=== PATIENT | female | born 1985 | race Caucasian/White ===

== ENCOUNTER 2020-03-18 21:34 | Inpatient (IN) | payer MEDICAID ==
[~2020-03-18] VITALS: Ht 160 cm; Wt 81.6 kg
[2020-03-18] MEDS ORDERED: CYMBALTA60 MG PO (21:39)
[2020-03-18 22:32] VITALS: BP 123/79
[2020-03-18 22:36] LABS: HCG SERUM NEGATIVE (NEGATIVE)
[2020-03-18 22:38] LABS: CALC OSMOLALITY 265 mosm/kg (275-300); CALCIUM 9.2 mg/dL (8.5-10.1); CARBON DIOXIDE 26.4 mmol/L (21.0-32.0); CHLORIDE - SERUM 101 mmol/L (98-107); CREATININE - SERUM 0.9 mg/dL (0.6-1.3); GLUCOSE 116 mg/dL (74-106); POTASSIUM - SERUM 3.8 mmol/L (3.5-5.1); SODIUM 133 mmol/L (136-145); UREA NITROGEN 10 mg/dL (7-18); eGFR NON AFRICAN AMERICAN 75 mL/min (90-120)
[2020-03-18 22:38] LABS: BILIRUBIN NEGATIVE (NEGATIVE); KETONE NEGATIVE (NEGATIVE); NITRITE NEGATIVE (NEGATIVE); UROBILINOGEN NORMAL mg/dL (< 2)
[2020-03-18 22:39] LABS: BACTERIA FEW HPF (NONE SEEN); EPITHELIAL CELLS OCC /hpf (0-5); WHITE CELLS - URINE 0-5 HPF (0-4)
[2020-03-18 22:41] LABS: ALBUMIN 3.6 g/dL (3.4-5.0); ALKALINE PHOSPHATASE 106 U/L (30-120); ALT (SGPT) 21 U/L (10-68); AMYLASE - SERUM 78 U/L (25-115); BILIRUBIN - TOTAL 0.27 mg/dL (0.2-1.3); LIPASE 184 U/L (73-393); PROTEIN - SERUM 7.8 g/dL (6.4-8.2)
[2020-03-18 22:42] LABS: HEMOGLOBIN 14.2 g/dL (12-16); MCH 30.3 pg (26.0-34.0); MCHC 33.8 g/dL (31.0-37.0); MCV 89.6 fL (80.0-100.0); MEAN PLATELET VOLUME 9.2 fL (7.4-10.4); PLATELET COUNT 433 10x3/uL (130-400); RBC 4.69 10x6/uL (4.00-5.40); RDW 13.7 % (11.5-14.5); TROPONIN-I < 0.017 ng/mL (0.000-0.060); WBC 25.3 10x3/uL (4.8-10.8)
[2020-03-18 22:57] LABS: EOSINOPHILS 2 % (0-7); LYMPHOCYTES 9 % (15-50); MONOCYTES 2 % (2-11); NEUTROPHILS 87 % (40-80); PLATELET ESTIMATE NORMAL
[2020-03-19 01:00] VITALS: BP 113/70
[2020-03-19 01:23] LABS: C-REACTIVE PROTEIN 2.7 mg/dL (0.0-0.9)
[2020-03-19 02:15] VITALS: BP 108/67
[2020-03-19 03:16] VITALS: BP 104/63
[2020-03-19 04:17] LABS: BASOPHILS 0.2 % (0-2); EOSINOPHILS 2.9 % (0-7); HEMATOCRIT 37.8 % (36.0-48.0); HEMOGLOBIN 12.6 g/dL (12-16); IMMATURE GRANULOCYTES 0.9 % (0-5); LYMPHOCYTES 21.9 % (15-50); MCH 29.7 pg (26.0-34.0); MCHC 33.3 g/dL (31.0-37.0); MCV 89.2 fL (80.0-100.0); MEAN PLATELET VOLUME 8.8 fL (7.4-10.4); MONOCYTES 3.1 % (2-11); PLATELET COUNT 384 10x3/uL (130-400); RBC 4.24 10x6/uL (4.00-5.40); RDW 13.6 % (11.5-14.5)
[2020-03-19 04:31] LABS: ALBUMIN 2.8 g/dL (3.4-5.0); ALKALINE PHOSPHATASE 82 U/L (30-120); ALT (SGPT) 18 U/L (10-68); BILIRUBIN - TOTAL 0.32 mg/dL (0.2-1.3); CALCIUM 8.2 mg/dL (8.5-10.1); CARBON DIOXIDE 24.8 mmol/L (21.0-32.0); CHLORIDE - SERUM 105 mmol/L (98-107); CREATININE - SERUM 0.8 mg/dL (0.6-1.3); GLUCOSE 101 mg/dL (74-106); PROTEIN - SERUM 6.4 g/dL (6.4-8.2); SODIUM 138 mmol/L (136-145); eGFR NON AFRICAN AMERICAN 86 mL/min (90-120)
[2020-03-19 04:37] LABS: CALC OSMOLALITY 273 mosm/kg (275-300); UREA NITROGEN 7 mg/dL (7-18)
--- NOTE | 2020-03-19 07:21 | NUR ---
LYING IN BED W/EYES CLOSED, AROUSES EASILY W/VERBAL STIMULI. DENIES ANY NEEDS, NO DISTRESS NOTED.
[2020-03-19 08:38] VITALS: BP 108/66
[2020-03-19 10:53] VITALS: BP 110/62
[2020-03-19 15:02] VITALS: Ht 160 cm; Wt 81.6 kg
[2020-03-19 16:59] VITALS: BP 115/72
--- NOTE | 2020-03-19 23:50 | NUR ---
RECIEVED TO ROOM ALERT AND ORIENTIATED, IV INTACT TO LEFT WRIST, DENIES PAIN OR NEEDS AT THSI TIME, CALL LIGHT IN REACH
--- NOTE | 2020-03-19 23:56 | NUR ---
REPORT CALLED AND PT TRANSFERED TO [id number].
[2020-03-20] VITALS: BP 133/66
[2020-03-20 04:00] VITALS: BP 98/61
--- NOTE | 2020-03-20 05:59 | NUR ---
I have reviewed this patient and I concur with the Shift Assessment completed by the Licensed Practical Nurse today this shift.
[2020-03-20 06:45] LABS: BASOPHILS 0.4 % (0-2); EOSINOPHILS 2.3 % (0-7); HEMATOCRIT 38.6 % (36.0-48.0); HEMOGLOBIN 12.8 g/dL (12-16); IMMATURE GRANULOCYTES 0.4 % (0-5); LYMPHOCYTES 39.5 % (15-50); MCH 29.6 pg (26.0-34.0); MCHC 33.2 g/dL (31.0-37.0); MCV 89.4 fL (80.0-100.0); MEAN PLATELET VOLUME 9.2 fL (7.4-10.4); MONOCYTES 5.5 % (2-11); NEUTROPHILS 51.9 % (40-80); PLATELET COUNT 377 10x3/uL (130-400); RBC 4.32 10x6/uL (4.00-5.40); RDW 13.6 % (11.5-14.5)
[2020-03-20 06:59] LABS: WBC 10.7 10x3/uL (4.8-10.8)
[2020-03-20 07:00] LABS: ALKALINE PHOSPHATASE 74 U/L (30-120); ALT (SGPT) 18 U/L (10-68); BILIRUBIN - TOTAL 0.23 mg/dL (0.2-1.3); C-REACTIVE PROTEIN 4.7 mg/dL (0.0-0.9); CALC OSMOLALITY 273 mosm/kg (275-300); CALCIUM 8.4 mg/dL (8.5-10.1); CHLORIDE - SERUM 105 mmol/L (98-107); CREATININE - SERUM 0.7 mg/dL (0.6-1.3); GLUCOSE 87 mg/dL (74-106); POTASSIUM - SERUM 4.4 mmol/L (3.5-5.1); PROTEIN - SERUM 6.2 g/dL (6.4-8.2); SODIUM 138 mmol/L (136-145); eGFR NON AFRICAN AMERICAN > 90 mL/min (90-120)
[2020-03-20 07:02] LABS: UREA NITROGEN 9 mg/dL (7-18)
[2020-03-20 09:08] VITALS: BP 173/56
--- NOTE | 2020-03-20 11:15 | NUR ---
RESTING IN BED, NO DISTRESS NOTED, DENIES ANY PAIN, SL IN PLACE
[2020-03-20 12:14] VITALS: BP 118/65
[2020-03-20] MEDS ORDERED: AMOXICILLIN500 M1 PO (14:17)
[2020-03-20] MEDS ORDERED: NICODERM CQ1 EAC3 TOPICAL (16:17)
--- NOTE | 2020-03-20 16:37 | NUR ---
REVIEWED D/C ORDERS WITH PT, REMOVED IV, TIP INTACT, WALKED FROM HOSPITAL
== END 2020-03-20 16:30 | disposition home or self-care (01) | DRG 871 ==
LOC: D.ER 21:34 → D.MS 03-19 03:08 → D.M2 03-19 03:08 → D.MS 03-19 23:52
PROVIDERS: Family Medicine; ADMIT Family Medicine; ATTEND Family Medicine
DX: A41.9 Sepsis, unspecified organism (principal); J18.9 Pneumonia, unspecified organism; K76.0 Fatty (change of) liver, not elsewhere classified; Z87.891 Personal history of nicotine dependence; D72.829 Elevated white blood cell count, unspecified; A49.1 Streptococcal infection, unspecified site